=== PATIENT | female | born 1945 | race Caucasian/White ===

== ENCOUNTER 2025-03-28 15:14 | Emergency (ER) | payer MEDICARE, OTHER ==
[~2025-03-28 15:14] MED LIST: Iopamidol 370 76% 100 ML VIAL ONE
[2025-03-28 16:40] LABS: #Basophils 0.06 10x3/uL (0.0-0.2); #Eosinophils 0.19 10x3/uL (0.0-0.5); #Monocytes 0.64 10x3/uL (0.0-1.1); #Neutrophils 5.51 10x3/uL (1.5-8.4); %Basophils 0.7 % (0.0-2.0); %Eosinophils 2.2 % (0.0-6.0); %Lymphocytes 24.5 % (18.0-47.0); %Monocytes 7.5 % (0.0-10.0); %Neutrophils 65.0 % (40.0-75.0); Hematocrit 45.9 % (34.9-44.5); Hemoglobin 15.9 g/dL (12.0-15.5); Mean Corpuscular Hemoglobin 31.5 pg (27.0-33.0); Mean Corpuscular Volume 90.9 fL (81.6-98.3); Platelet Count 239 10x3/uL (150-450); Red Blood Cell (RBC) Count 5.05 10x6/uL (3.90-5.03); White Blood Cell (WBC) Count 8.49 10x3/uL (3.5-10.5)
[2025-03-28 16:56] LABS: ALT (SGPT) 22 U/L (Less than 34); AST (SGOT) 19 U/L (11-34); Albumin 4.8 g/dL (3.1-4.5); Alkaline Phosphatase 68 U/L (40-110); Anion Gap 14 mmol/L (10-20); BUN (Urea Nitrogen) 16 mg/dL (9.8-20.1); Bilirubin, Total 1.0 mg/dL (0.3-1.2); Calc. Creatinine Clearance 0 mL/min (70-130); Calcium 9.4 mg/dL (7.8-10.44); Carbon Dioxide 26 mmol/L (23-31); Chloride 105 mmol/L (98-107); Globulin 2.6 g/dL (2.4-3.5); Glucose 86 mg/dL (83-110); Potassium 3.9 mmol/L (3.5-5.1); Sodium 141 mmol/L (136-145)
[2025-03-28 17:02] LABS: Troponin I Less than 0.010 ng/mL (< 0.028)
== END 2025-03-28 18:40 | disposition home or self-care (01) ==
LOC: CSHERS 15:14
DX: R42 Dizziness and giddiness (principal); I10 Essential (primary) hypertension; R29.700 NIHSS score 0
CPT/HCPCS: 70450; 70496; 70498; 80053; 84484; 85025; 93005; 99284; Q9967